=== PATIENT | female | born 1955 | race African-American/Black ===

== ENCOUNTER 2025-10-05 08:24 | Emergency (ER) | payer OTHER ==
[~2025-10-05] VITALS: Ht 162.6 cm; Wt 82.0 kg
[2025-10-05 08:27] VITALS: O2SAT 100
[2025-10-05] MEDS ORDERED: PROP10TA10 PO (09:41)
[2025-10-05 09:42] LABS: BASOPHILS % 0.5 % (0.0-2.0); EOSINOPHILS % 0.4 % (0.0-5.0); HEMATOCRIT. 37.1 % (36.0-48.0); HEMOGLOBIN. 11.8 g/dL (12.0-16.0); LYMPHOCYTES % 26.2 % (20.0-50.0); MEAN PLATELET VOLUME 8.1 fl (7.4-10.4); MONOCYTES % 9.8 % (2.0-8.0); NEUTROPHILS % 63.1 % (40.0-76.0); PLATELET 221 x1000/uL (130-400); RED BLOOD CELL COUNT 5.26 mill/uL (4.2-5.4); RED CELL DISTRIBUTION WIDTH 14.5 % (11.6-14.6)
[2025-10-05] MEDS ORDERED: AMLO2.5T45 MT (09:56)
[2025-10-05 09:57] LABS: CREATININE 0.8 mg/dL (0.6-1.0); UREA NITROGEN BLOOD 7 mg/dL (9-23)
[2025-10-05 09:58] LABS: TROPONIN I HIGH SENSITIVITY < 4 ng/L (3.0-34)
[2025-10-05 12:33] VITALS: BP 158/76; PULSE 77; RESP 13; TEMP 36.8; O2SAT 98
== END 2025-10-05 13:00 | disposition short-term general hospital (02) ==
LOC: ER 08:24 → EDBEDREQ 10:24 → EDBEDREQTM 10:24 → ER 13:00 → CMPBEDREQ 15:28
DX: R07.89 Other chest pain (principal); E03.9 Hypothyroidism, unspecified; I10 Essential (primary) hypertension; F41.9 Anxiety disorder, unspecified; Z79.899 Other long term (current) drug therapy
CPT/HCPCS: 36415; 71045; 80048; 84484; 85025; 93005; 99285